=== PATIENT | male | born 1955 | race Caucasian/White ===

== ENCOUNTER → 2020-01-06 | Outpatient (CLI) | payer OTHER ==
[~2020-01-06] MED LIST: IBP200T; IBUP400T22
--- NOTE | 2020-01-06 15:16 | Diagnostic Imaging Report ---
Indication: Fall with right ankle injury. Time of exam: 2:10 PM 3 views of the right ankle were obtained. There is an acute fracture of the distal fibula in a supersyndesmotic location. No significant displacement or angulation is seen. Distal tibia appears to be intact. Ankle mortise is well maintained. Talar dome is smooth. IMPRESSION: Distal fibular fracture. No other significant abnormality is seen. Dictated by: Dictated on workstation # [id number]
== END ==
LOC: RAD 13:46
PROVIDERS: ATTEND Family Medicine
DX: S82.831A Other fracture of upper and lower end of right fibula, initial encounter for closed fracture (principal); X58.XXXA Exposure to other specified factors, initial encounter
CPT/HCPCS: 73610

== ENCOUNTER → 2020-02-18 | Outpatient (CLI) | payer OTHER ==
--- NOTE | 2020-02-18 11:04 | Diagnostic Imaging Report ---
EXAM: Right ankle at 10:16 AM INDICATION: Follow-up fracture 3 views were obtained. As noted on the prior exam of 01/06/2020, there is a slightly displaced slightly comminuted fracture of the distal fibular shaft. The main fracture fragments are unchanged in alignment when compared to the prior exam. There is only minimal healing callus formation present however and the fracture lines are still clearly evident. No other fracture or acute bony abnormality is noted. The ankle mortise is not widened and the talar dome is smooth. There is still mild soft tissue edema over the lateral malleolus. IMPRESSION: 1. The fracture of the distal fibular shaft seen previously is again evident. The main fracture fragments are similar in alignment to the prior exam but there is only minimal healing callus formation present. Clinical follow-up is recommended. 2. There is no acute bony abnormality noted. Dictated by: Dictated on workstation # [id number]
== END ==
LOC: RAD 09:53
PROVIDERS: ATTEND Family Medicine
DX: S82.401D Unspecified fracture of shaft of right fibula, subsequent encounter for closed fracture with routine healing (principal); X58.XXXD Exposure to other specified factors, subsequent encounter
CPT/HCPCS: 73610

== ENCOUNTER → 2021-08-10 | Outpatient (CLI) | payer OTHER | LOC: LAB 09:53 | PROVIDERS: ATTEND Family Medicine | DX: E11.9 Type 2 diabetes mellitus without complications (principal) | CPT/HCPCS: 36415; 83036 ==

== ENCOUNTER → 2021-11-09 | Outpatient (CLI) | payer OTHER | LOC: LAB 07:09 | PROVIDERS: ATTEND Family Medicine | DX: E11.9 Type 2 diabetes mellitus without complications (principal) | CPT/HCPCS: 36415; 83036 ==

== ENCOUNTER → 2023-01-07 | Outpatient (CLI) | payer OTHER ==
--- NOTE | 2023-01-07 15:16 | Diagnostic Imaging Report ---
INDICATION: Abdominal distention PROCEDURE: Ultrasound abdomen complete. TECHNIQUE: Multiple real-time grayscale images were obtained of the abdomen in various projections. Liver measures 16 cm in length with coarse echogenicity. No discrete mass is identified. Gallbladder has a normal appearance without filling defect or wall thickening. There is no biliary ductal dilatation. Pancreas is largely obscured by overlying bowel. Spleen has a normal appearance without focal mass. There are perisplenic venous structures compatible with varices. There is mild ascites. Abdominal aorta is largely obscured. No inferior vena caval abnormality is identified. Right and left kidneys measure 11 and 12 cm in length without hydronephrosis. IMPRESSION: Limited study reveals mild ascites with perisplenic varices may be on the basis of portal venous hypertension. Otherwise, no definite acute abnormality is seen. Dictated by: Dictated on workstation # [id number]
== END ==
LOC: RAD 09:04
PROVIDERS: ATTEND Family Medicine
DX: I86.8 Varicose veins of other specified sites (principal); R19.00 Intra-abdominal and pelvic swelling, mass and lump, unspecified site; R06.00 Dyspnea, unspecified; R18.8 Other ascites
CPT/HCPCS: 76700

== ENCOUNTER → 2023-01-18 | Outpatient (CLI) | payer BC ==
[~2023-01-18] MED LIST changes: +IOHEXOL 350 MG/ML 100 ML (OMNIPAQUE 350) VIAL IV ONE; +NS 100 ML (IVPB) BAG IV ONE
--- NOTE | 2023-01-18 16:07 | Diagnostic Imaging Report ---
Procedure: CT abdomen and pelvis with contrast. Technique: Multiple contiguous axial images were obtained through the abdomen and pelvis after administration of intravenous contrast. Auto Exposure Controls were utilized during the CT exam to meet ALARA standards for radiation dose reduction. All CT scans use one or more of the following dose optimizing techniques: automated exposure control, MA and/or KvP adjustment based on patient size and exam type or iterative reconstruction. Date: January 18, 2023. Indication: 67-year-old male, lower abdominal pain. Weight gain and bloating. Comparison: Ultrasound abdomen complete January 07, 2023. Findings: There are linear opacities in the right lower lobe, left lower lobe, and right middle lobe compatible with mild scarring and/or atelectasis. The heart is not enlarged. There is no identified pericardial effusion. The liver is nodular in contour compatible with cirrhosis. There is no identified liver lesion. The main, right, and left portal veins are patent. The gallbladder is unremarkable. There is no intrahepatic or extrahepatic bile duct dilation. The main pancreatic duct is not abnormally dilated. Unremarkable appearance of the pancreatic parenchyma. The spleen measures 14.4 cm in craniocaudal extent and is not quite meeting threshold criteria for diagnosis of mild splenomegaly at 15 cm. The adrenal glands are unremarkable. Unremarkable appearance of the renal parenchyma. There is no hydronephrosis. There is contrast in the urinary collecting systems and bladder relating to the timing of the contrast bolus. There is no identified urinary bladder wall thickening. There is a fat-containing left inguinal hernia. The intestinal tract is not distended. The appendix is unremarkable. There is prominence of the mesenteric vascularity. There are gastroesophageal varices. There is a large volume ascites. There is no drainable fluid collection. There is no free intraperitoneal air. There are atherosclerotic calcifications. There is no identified abnormally enlarged lymph node in the abdomen or pelvis meeting CT size criteria for adenopathy. There are multilevel degenerative changes of the spine. There is chronic left rib deformity relating to a prior fracture. There is no identified acute bony abnormality. Impression: 1. Cirrhosis with large volume ascites and gastroesophageal varices. Spleen is prominent in size but not quite meeting threshold criteria for diagnosis of splenomegaly. Dictated by: Dictated on workstation # [id number]
== END ==
LOC: RAD 08:39
PROVIDERS: ATTEND Surgery
DX: K74.60 Unspecified cirrhosis of liver (principal); R18.8 Other ascites; I85.10 Secondary esophageal varices without bleeding
CPT/HCPCS: 74177

== ENCOUNTER → 2023-01-21 | Outpatient (CLI) | payer BC ==
[~2023-01-21] MED LIST changes: -IOHEXOL 350 MG/ML 100 ML (OMNIPAQUE 350) VIAL IV ONE; -NS 100 ML (IVPB) BAG IV ONE
[2023-01-21 13:00] VITALS: BP 128/84
[2023-01-21 13:27] LABS: ALBUMIN 3.2 GM/DL (3.2-4.5); CALCIUM 9.1 MG/DL (8.5-10.1); CREATININE SERUM 0.72 MG/DL (0.60-1.30); POTASSIUM 4.4 MMOL/L (3.6-5.0); TOTAL PROTEIN 6.1 GM/DL (6.4-8.2)
[2023-01-21 13:46] LABS: BODY FLUID WBC TOTAL COUNT 0.151 10^3/uL
[2023-01-21 13:56] LABS: ALBUMIN,BODY FLUID 0.8 G/DL
[2023-01-21 14:01] LABS: GLUCOSE,BODY FLUID 131 MG/DL; TOTAL PROTEIN,BODY FLUID 1.3 G/DL
--- NOTE | 2023-01-21 14:44 | Progress Note-Post Operative ---
Post-Operative Progess Note Surgeon (s)/Molder Floor (s) Surgeon EDWIN BEE DO Molder Floor: na Pre-Operative Diagnosis ascites Post-Operative Diagnosis same Procedure & Operative Findings Date of Procedure 01/21/23 Procedure Performed/Findings DATE OF SERVICE: 01/21/23 PREOPERATIVE DIAGNOSIS: Symptomatic abdominal ascites. POSTOPERATIVE DIAGNOSIS: Symptomatic abdominal ascites. PROCEDURE: Ultrasound-guided paracentesis. SURGEON: Edwin Bee DO ANESTHESIA: Local. ESTIMATED BLOOD LOSS: Scant. COMPLICATIONS: None. INDICATIONS: The patient is a 67 male with ascites. The patient understands risks and benefits of procedure and wished to proceed. Consent was signed and on the chart. DESCRIPTION OF PROCEDURE: The patient was prepped and draped in sterile fashion after ultrasound was used to isolate the best pocket for drainage. Local anesthetic was infiltrated. An 11 blade scalpel was then used to make a small incision. The [id number] needle and catheter were then advanced through the abdominal wall until straw-colored fluid was withdrawn. The catheter was advanced, and the needle was removed. The 4800 mL of straw-colored fluid was withdrawn. The catheter was then removed, and a sterile bandage was applied. The patient tolerated procedure well without any complications. Anesthesia Type local Estimated Blood Loss Estimated blood loss (mL): minimal Specimens/Packing Specimens Removed ascites EDWIN BEE DO Jan 21, 2023 14:43
[2023-01-21 14:47] LABS: BODY FLUID APPEARENCE CLEAR; BODY FLUID COLOR YELLOW; BODY FLUID SOURCE PARACENTESIS
== END ==
LOC: SDC 10:55
PROVIDERS: ATTEND Surgery
DX: R18.8 Other ascites (principal)
CPT/HCPCS: 36415; 49083; 80053; 82042; 82945; 84157; 87070; 87075; 87205; 88112; 88305; 89051

== ENCOUNTER 2023-02-05 09:02 | Outpatient (RCR) | payer BC ==
[2023-02-04 12:34] VITALS: BP 130/87
--- NOTE | 2023-02-04 20:46 | Progress Note-Post Operative ---
Post-Operative Progess Note Surgeon (s)/Event Staff Member (s) Surgeon EDWIN BEE DO Event Staff Member: na Pre-Operative Diagnosis ascites Post-Operative Diagnosis same Procedure & Operative Findings Date of Procedure 02/04/23 Procedure Performed/Findings PROCEDURE: Ultrasound-guided paracentesis. SURGEON: Edwin Bee DO ANESTHESIA: Local 5 mL 1% lidocaine ESTIMATED BLOOD LOSS: Scant. COMPLICATIONS: None. INDICATIONS: The patient is a 68 male with symptomatic ascites. The patient understands risks and benefits of procedure and wished to proceed. Consent was signed and on the chart. DESCRIPTION OF PROCEDURE: The patient was prepped and draped in sterile fashion after ultrasound was used to isolate the best pocket for drainage. Local anesthetic was infiltrated. An 11 blade scalpel was then used to make a small incision. The Topf-V-Ncunlhue needle and catheter were then advanced through the abdominal wall until straw-colored fluid was withdrawn. The catheter was advanced, and the needle was removed. 9125 mL of straw-colored fluid was withdrawn. The catheter was then removed, and a sterile bandage was applied. The patient tolerated procedure well without any complications. Anesthesia Type Local Estimated Blood Loss Estimated blood loss (mL): minimal Specimens/Packing Specimens Removed EDWIN Forrest DO Feb 04, 2023 20:46
[~2023-02-05] VITALS: Ht 170 cm; Wt 90.0 kg
[~2023-02-05 09:02] MED LIST changes: +LIDOCAINE 1% INJ 20 ML VIAL INJ ONE; +LIDOCAINE 1% INJ 20 ML VIAL ONE
[2023-02-05] MEDS ORDERED: ALBUMIN 25% 25 GM/100 ML 200 ML IV ONE ×2 (09:18→09:30)
[2023-02-05 10:34] VITALS: BP 136/85
--- NOTE | 2023-02-11 12:38 | Diagnostic Imaging Report ---
US-NOCHG GUIDE PARA/THOR INDICATION: Ascites COMPARISON: CT abdomen pelvis from 01/18/2023 FINDINGS AND IMPRESSION: 1. Limited ultrasound was performed in all 4 quadrants to evaluate for ascites. 2. The largest pocket is in the right lower quadrant and was marked for paracentesis to be performed by Dr. Bee. Dictated by: Dictated on workstation # [id number]
== END 2023-02-07 ==
LOC: SDC 09:02
PROVIDERS: ATTEND Surgery
DX: R18.8 Other ascites (principal)
CPT/HCPCS: 49083; 96365; 96366